=== PATIENT | male | born 1965 | race Two or more races ===

== ENCOUNTER 2024-09-12 16:08 | Emergency (ER) | payer OTHER, SELFPAY ==
[2024-09-12 16:23] VITALS: BP 146/84; PULSE 86; RESP 16; TEMP 36.6; O2SAT 98; BMI 23.2
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
[2024-09-12 17:09] LABS: Basophils Absolute Auto 0.02 K/uL (0.00-0.30); Basophils Percent Auto 0.3 % (0.0-3.0); Eosinophils Absolute Auto 0.05 K/uL (0.00-0.50); Eosinophils Percent Auto 0.8 % (0.0-7.0); Hematocrit 42.9 % (37.0-53.0); Hemoglobin* 14.8 gm/dL (13.5-17.5); Lymphocytes Absolute Auto 1.93 K/uL (0.90-2.90); Lymphocytes Percent Auto 29.2 % (20-44); Mean Corpuscular HGB Conc 35 gm/dL (32-36); Mean Corpuscular Hemoglobin 30 pg (26-34); Mean Corpuscular Volume 87 fL (80-100); Monocytes Percent Auto 6.5 % (0.0-11.0); Neutrophils Absolute Auto 4.19 K/uL (1.7-7.0); Neutrophils Percent Auto 63.2 % (42.0-72.0); Platelet Count* 145 K/uL (140-440); RDW Coefficient of Variation % 12.2 % (11.5-15.5); Red Blood Count 4.93 m/uL (4.30-5.90); White Blood Count* 6.62 K/uL (4.50-11.00)
[2024-09-12 17:23] LABS: Slide Review Reflex No
[2024-09-12 17:25] LABS: Chloride* 99 mmol/L (96-114); Potassium* 3.3 mmol/L (3.6-5.1); Sodium* 136 mmol/L (135-149)
[2024-09-12 17:28] LABS: Creatinine* 0.8 mg/dL (0.5-1.5); Est. Creatinine Clearance* 84.28; Estimated Glomerular Filt Rate 103 ml/min
[2024-09-12 17:29] LABS: Anion Gap 12 mEq/L (7-15); Blood Urea Nitrogen* 18 mg/dL (7-30); Calcium* 9.1 mg/dL (8.4-10.6); Carbon Dioxide* 25 mmol/L (20-32); Glucose* 297 mg/dL (60-115)
--- OUTSIDE RECORDS SUMMARY | 2024-09-12 17:29 | XMS_ITS | Data Portability ---
Author Organization [facility] Address [address] [place] [address] Hiram ELDERGLORIA HENRIQUEZ [id number] Assessment No assessment recorded. Plan of Treatment Reminders Order Date Submit Date Provider Last Modified By Organization Details Last Modified Time Details Appointments None recorded. Lab CBC w/ auto diff 2019 FARIBA Not available 15:15:51 CMP, serum or plasma 2019 FARIBA Not available 18:14:52 lipid panel, serum 2019 FARIBA Not available 1 18:14:52 hemoglobin A1C/hemogl obin total, QN, blood 2019 FARIBA Not available 1 09:15:33 microalbum in/creatin ine, mass ratio, urine 2019 020 FARIBA Not available 1 18:14:52 CBC w/ auto diff 2020 021 [email or web address] Not available 1 11:13:01 CMP, serum or plasma 2020 021 [email or web address] Not available 1 11:13:08 lipid panel, serum 2020 021 Not available 1 11:13:15 hemoglobin A1C/hemogl obin total, QN, blood 2020 021 [email or web address] Not available 1 11:18:33 microalbum in/creatin ine, mass ratio, urine 2020 021 [email or web address] Not available 11:18:39 Referral None recorded. Procedures None recorded. Surgeries None recorded. Imaging None recorded. Medication Orders metformin 500 mg tablet 2020 021 [email or web address] Not available 15:53:04 Patient TargetsNo targets recorded. Patient Instructions Encounter Date Encounter Id Patient Instructions Last Modified By Organization Details Last Modified Time 11/04/2020 [id number] go to [facility] and get vitamins [place] Not available 11/04/2020 14:38:07 Reason for Referral None Reported. Results Created Date Observation Date Name Description Value Unit Range Abnormal Flag Note LastModifiedBy Organization Detail LastModifiedTime 12/30/1912/30/2020 hemog lobin A1C/h emogl obin total , QN, blood HGB A1C 6.4 Not Available [facility] [address], [place], [address], 12/31/2020 09:07:56 12/30/19 21 12/30/2020 micro album in/cr eatin ine, mass ratio , urine creatinine 0.71 Not Available [address], [address], 12/30/2020 18:14:52 12/30/19 21 12/30/2020 micro album in/cr eatin ine, mass ratio , urine ALT 21 Not Available [address], [address], 12/30/2020 18:14:52 12/30/19 21 12/30/2020 micro album in/cr eatin ine, mass ratio , urine HDL 37 Not Available [address], [address], 12/30/2020 18:14:52 12/30/19 21 12/30/2020 micro album in/cr eatin ine, mass ratio , urine LDL 57 Not Available [address], [address], 12/30/2020 18:14:52 12/30/19 21 12/30/2020 micro album in/cr eatin ine, mass ratio , urine total 113 Not Available [address] [place], [address], 12/30/2020 18:14:52 12/30/19 21 12/30/2020 micro album in/cr eatin ine, mass ratio , urine trigliceride s 96 Not Available [address] [place], [address], 12/30/2020 18:14:52 12/30/19 21 12/30/2020 micro album in/cr eatin ine, mass ratio , urine microalbumin 22.3 Not Available [address] [place], [address], 12/30/2020 18:14:52 12/30/19 21 12/30/2020 micro album in/cr eatin ine, mass ratio , urine creatinine 1.21 Not Available [address] [place], [address], 12/30/2020 18:14:52 12/30/19 21 12/30/2020 lipid panel , serum creatinine 0.71 Not Available [address] [place], [address], 12/30/2020 18:14:52 12/30/19 21 12/30/2020 lipid panel , serum ALT 21 Not Available [address] [place], [address], 12/30/2020 18:14:52 12/30/19 21 12/30/2020 lipid panel , serum HDL 37 Not Available [address] [place], [address], 12/30/2020 18:14:52 12/30/19 21 12/30/2020 lipid panel , serum LDL 57 Not Available [address] [place], [address], 12/30/2020 18:14:52 12/30/19 21 12/30/2020 lipid panel , serum total 113 Not Available [address] [place], [address], 12/30/2020 18:14:52 12/30/19 21 12/30/2020 lipid panel , serum trigliceride s 96 Not Available [address] [place], [address], 12/30/2020 18:14:52 12/30/19 21 12/30/2020 lipid panel , serum microalbumin 22.3 Not Available [address] [place], [address], 12/30/2020 18:14:52 12/30/19 21 12/30/2020 lipid panel , serum creatinine 1.21 Not Available [address] [place], [address], 12/30/2020 18:14:52 12/30/19 21 12/30/2020 CMP, serum or plasm a creatinine 0.71 Not Available [address] [place], [address], 12/30/2020 16:12:32 12/30/19 21 12/30/2020 CMP, serum or plasm a ALT 21 Not Available [address] [place], [address], 12/30/2020 16:12:32 12/30/19 21 12/30/2020 CMP, serum or plasm a HDL 37 Not Available [address] [place], [address], 12/30/2020 16:12:32 12/30/19 21 12/30/2020 CMP, serum or plasm a LDL 57 Not Available [address] [place], [address], 12/30/2020 16:12:32 12/30/19 21 12/30/2020 CMP, serum or plasm a total 113 Not Available [address] [place], [address], 12/30/2020 16:12:32 12/30/19 21 12/30/2020 CMP, serum or plasm a trigliceride s 96 Not Available [address] [place], [address], 12/30/2020 16:12:32 12/30/19 21 12/30/2020 CMP, serum or plasm a microalbumin 22.3 Not Available [address] [place], [address], 12/30/2020 16:12:32 12/30/19 21 12/30/2020 CMP, serum or plasm a creatinine 1.21 Not Available [address] [place], [address], 12/30/2020 16:12:32 12/30/19 21 12/30/2020 CBC w/ auto diff HGB 14.8 Not Available [address] [place], [address], 12/30/2020 15:08:17 12/30/19 21 12/30/2020 CBC w/ auto diff platelets 187 Not Available [address] [place], [address], 12/30/2020 15:08:17 12/30/19 21 12/30/2020 CBC w/ auto diff WBC 6.7 Not Available Kimberly Pool [facility] [address], [place], [address], 12/30/2020 15:08:17 Result Notes None recorded. Medical Equipment None Reported. Medications Name Sig Start Date Stop Date Status Note LastModified by Organization Details LastModified Time metformin 500 mg tablet Take 0.5 tablets every day by oral route. active Not Available Not Available No t Available Vitals None Recorded Social History None recorded. Functional Status None recorded. Mental Status None recorded. Family History Nothing Reported. Medical History No medical history recorded. Immunizations Vaccine Type Date Status Provider Name and Address Organization Details Recorded Time COVID-19, mRNA, LNP-S, PF, 30 mcg/0.3 mL dose, marvin-sucrose 12/03/2021 completed DENISE LOUIS [address] [place] [address], [id number], [facility] 12/03/2021 17:31:19 Past Encounters Encounter ID Performer Location Encounter Start Date Encounter Closed Date Diagnosis/Indication Diagnosis SNOMED-CT Code Diagnosis ICD10 Code [id number] Gian Freeman MD [facility] [address] [place] [address] 11/04/2020 14:13:57 11/04/2020 16:08:50 Numbness of foot 172912090 R20.0 [id number] Gian Freeman MD [facility] [address] [place] [id number] 01/06/2021 14:49:38 01/06/2021 15:57:27 Numbness of foot 082373921 R20.0 Type 2 syeda betes mellitus without complication 544054715 E11.9 Type 2 syeda betes mellitus 25359310 E11.9 [id number] DENISE LOUIS [facility] [address] [place] [id number] 12/03/2021 17:20:19 12/03/2021 20:55:45 Administration of SARS-CoV-2 mRNA vaccine [id number] Z23 Health Concerns Section Related Observation LastModified by Organization Detai ls LastModified Time None Recorded Concern Status LastModified by Organization Details LastModified Time None Recorded Advance Directives Directive None Recorded Payers Encounter Date Sequence Insurance Name Policy Number Policy Thakkar Covered Member ID Thakkar Member ID Guarantor Name 11/04/2020 SLIDING FEE SCHEDULE - DISCOUNT Sajan Ramirezo 01/06/2021 SLIDING FEE SCHEDULE - DISCOUNT Sajan Ramirezo 12/03/2021 SLIDING FEE SCHEDULE - DISCOUNT Sajan Ramirezo Notes Date Note Type Note Provider Name and Address Organization Details Recorded Time 11/04/2020 text/html HPI Notes: prediabetes in past, feet numb for two months, no open sores, occ hands, weight stable at 170, unemployed, family hx of diabetes, Gian Freeman MD [address] [facility] [place], [address], [facility] [employer] 11/04/2020 14:39:44 01/06/2021 text/html HPI Notes: feet ar better, remains unemployed, no other sx Gian Freeman MD [address] [facility] [place], [address], [facility] [employer] 01/06/2021 15:52:07 12/03/2021 text/html HPI Notes: Requesting Covid 19 vaccine DENISE LOUIS [address] [place], [address], [facility] [employer] 12/03/2021 17:32:55
[2024-09-12 18:31] LABS: Appearance Urine Cloudy (Clear); Bilirubin Urine Negative (Negative); Blood Urine Trace-intact (Negative); Color Urine Yellow (Yellow); Glucose Urine 2+ (Negative); Ketones Urine 2+ (Negative); Leukocyte Esterase Urine Negative (Negative); Nitrite Urine Negative (Negative); Protein Urine 2+ (Negative); Specific Gravity Urine 1.015 (1.000-1.030)
[2024-09-12 18:37] LABS: Bacteria Urine Few; Fine Granular Casts Urine Few; RBC Urine 0-2 (0-2); Squamous Epithelial Cell Urine Few (None-Few); WBC Urine 25-50 (0-5)
== END 2024-09-12 18:51 | disposition home or self-care (01) ==
PROVIDERS: Emergency Provider Family Medicine; Visit Provider Family Medicine
DX: M54.50 Low back pain, unspecified (principal); V43.52XA Car driver injured in collision with other type car in traffic accident, initial encounter
CPT/HCPCS: 36415; 72131; 74177; 80048; 81001; 85025; 87086; 87186; 99284; Q9967

== ENCOUNTER 2025-03-17 22:38 | Emergency (ER) | payer OTHER, SELFPAY ==
--- OUTSIDE RECORDS SUMMARY | 2025-03-17 22:40 | XMS_ITS | Data Portability ---
Author Organization [facility] Address [address] [place] [address] Hiram [facility] GOFF [id number] Assessment No assessment recorded. Plan of Treatment Reminders Order Date Submit Date Provider Last Modified By Organization Details Last Modified Time Details Appointments None recorded. Lab CBC w/ auto diff 2020 [email or web address] Not available 11:13:01 CMP, serum or plasma 2020 021 [email or web address] Not available 11:13:08 lipid panel, serum 2020 021 [email or web address] Not available 1 11:13:15 hemoglobin A1C/hemogl obin total, QN, blood 2020 021 [email or web address] Not available 11:18:33 microalbum in/creatin ine, mass ratio, urine 2020 021 [email or web address] Not available 11:18:39 CBC w/ auto diff 2019 020 [email or web address] Not available 1 15:15:51 CMP, serum or plasma 2019 020 [email or web address] Not available 1 18:14:52 lipid panel, serum 2019 020 [email or web address] Not available 1 18:14:52 hemoglobin A1C/hemogl obin total, QN, blood 2019 020 FARIBA Not available 1 09:15:33 microalbum in/creatin ine, mass ratio, urine 12/07/ 2020 12/07/2 020 FARIBA Not available 18:14:52 Referral None recorded. Procedures None recorded. Surgeries None recorded. Imaging None recorded. Medication Orders metformin 500 mg tablet 2020 021 [email or web address] Not available 15:53:04 Patient TargetsNo targets recorded. Patient Instructions Encounter Date Encounter Id Patient Instructions Last Modified By Organization Details Last Modified Time 11/04/2020 [id number] go to [facility] and get vitamins [place] Not available 11/04/2020 14:38:07 Reason for Referral None Reported. Results Created Date Observation Date Name Description Value Unit Range Abnormal Flag Note LastModifiedBy Organization Detail LastModifiedTime 12/30/1912/30/2020 hemog lobin A1C/h emogl obin total , QN, blood HGB A1C 6.4 Not Available [facility] [address], [place], [address], 12/31/2020 09:07:56 12/30/19 21 12/30/2020 micro album in/cr eatin ine, mass ratio , urine creatinine 0.71 Not Available [address], [address], 12/30/2020 18:14:52 12/30/19 21 12/30/2020 micro album in/cr eatin ine, mass ratio , urine ALT 21 Not Available [address], [address], 12/30/2020 18:14:52 12/30/19 21 12/30/2020 micro album in/cr eatin ine, mass ratio , urine HDL 37 Not Available [address], [address], 12/30/2020 18:14:52 12/30/19 21 12/30/2020 micro album in/cr eatin ine, mass ratio , urine LDL 57 Not Available [address], [address], 12/30/2020 18:14:52 12/30/19 21 12/30/2020 micro album in/cr eatin ine, mass ratio , urine total 113 Not Available [address] [place], [address], 12/30/2020 18:14:52 12/30/19 21 12/30/2020 micro album in/cr eatin ine, mass ratio , urine trigliceride s 96 Not Available [address] [place], [address], 12/30/2020 18:14:52 12/30/19 21 12/30/2020 micro album in/cr eatin ine, mass ratio , urine microalbumin 22.3 Not Available [address] [place], [address], 12/30/2020 18:14:52 12/30/19 21 12/30/2020 micro album in/cr eatin ine, mass ratio , urine creatinine 1.21 Not Available [address] [place], [address], 12/30/2020 18:14:52 12/30/19 21 12/30/2020 lipid panel , serum creatinine 0.71 Not Available [address] [place], [address], 12/30/2020 18:14:52 12/30/19 21 12/30/2020 lipid panel , serum ALT 21 Not Available [address] [place], [address], 12/30/2020 18:14:52 12/30/19 21 12/30/2020 lipid panel , serum HDL 37 Not Available [address] [place], [address], 12/30/2020 18:14:52 12/30/19 21 12/30/2020 lipid panel , serum LDL 57 Not Available [address] [place], [address], 12/30/2020 18:14:52 12/30/19 21 12/30/2020 lipid panel , serum total 113 Not Available [address] [place], [address], 12/30/2020 18:14:52 12/30/19 21 12/30/2020 lipid panel , serum trigliceride s 96 Not Available [address] [place], [address], 12/30/2020 18:14:52 12/30/19 21 12/30/2020 lipid panel , serum microalbumin 22.3 Not Available [address] [place], [address], 12/30/2020 18:14:52 12/30/19 21 12/30/2020 lipid panel , serum creatinine 1.21 Not Available [address] [place], [address], 12/30/2020 18:14:52 12/30/19 21 12/30/2020 CMP, serum or plasm a creatinine 0.71 Not Available [address] [place], [address], 12/30/2020 16:12:32 12/30/19 21 12/30/2020 CMP, serum or plasm a ALT 21 Not Available [address] [place], [address], 12/30/2020 16:12:32 12/30/19 21 12/30/2020 CMP, serum or plasm a HDL 37 Not Available [address] [place], [address], 12/30/2020 16:12:32 12/30/19 21 12/30/2020 CMP, serum or plasm a LDL 57 Not Available [address] [place], [address], 12/30/2020 16:12:32 12/30/19 21 12/30/2020 CMP, serum or plasm a total 113 Not Available [address] [place], [address], 12/30/2020 16:12:32 12/30/19 21 12/30/2020 CMP, serum or plasm a trigliceride s 96 Not Available [address] [place], [address], 12/30/2020 16:12:32 12/30/19 21 12/30/2020 CMP, serum or plasm a microalbumin 22.3 Not Available [address] [place], [address], 12/30/2020 16:12:32 12/30/19 21 12/30/2020 CMP, serum or plasm a creatinine 1.21 Not Available [address] [place], [address], 12/30/2020 16:12:32 12/30/19 21 12/30/2020 CBC w/ auto diff HGB 14.8 Not Available [address] [place], [address], 12/30/2020 15:08:17 12/30/19 21 12/30/2020 CBC w/ auto diff platelets 187 Not Available [address] [place], [address], 12/30/2020 15:08:17 12/30/19 21 12/30/2020 CBC w/ auto diff WBC 6.7 Not Available [facility] [address], [place], [address], 12/30/2020 15:08:17 Result Notes None recorded. Medical [...] history recorded. Immunizations Vaccine Type Date Status Note Provider Nam e and Address Organization Details Recorded Time COVID-19, mRNA, LNP-S, PF, 30 mcg/0.3 mL dose, marvin-sucrose 12/03/2021 completed DENISE LOUIS [address] [place] [address], [id number], [facility] 12/03/2021 17:31:19 Past Encounters Encounter ID Performer Location Encounter Start Date Encounter Closed Date Diagnosis/Indication Diagnosis SNOMED-CT Code Diagnosis ICD10 Code Diagnosis Note [id number] Gian Freeman MD [facility] [address] [place] [phone] 11/04/2020 14:13:57 11/04/2020 16:08:50 Numbness of foot 066480220 R20.0 [id number] [facility] [address] [place] [id number] 01/06/2021 14:49:38 01/06/2021 15:57:27 Numbness of foot 308254014 R20.0 Type 2 syeda betes mellitus without complication 240984601 E11.9 needs rx Type 2 syeda betes mellitus 69219212 E11.9 [id number] DEINSE LOUIS [facility] [address] [place] [phone] 12/03/2021 17:20:19 12/03/2021 20:55:45 Administration of SARS-CoV-2 mRNA vaccine 4355538491 Z23 Health Concerns Section Related Observation LastModified by Organization Detai ls LastModified Time None Recorded Concern Status LastModified by Organization Details LastModified Time None Recorded Advance Directives Directive None Recorded Payers Encounter Date Sequence Insurance Name Policy Number Policy Thakkar Covered Member ID Thakkar Member ID Guarantor Name 11/04/2020 SLIDING FEE SCHEDULE - DISCOUNT Sajan Zaragozaucedo 01/06/2021 SLIDING FEE SCHEDULE - DISCOUNT Sajan Mclean 12/03/2021 SLIDING FEE SCHEDULE - DISCOUNT Sajan Mclean Notes Date Note Type Note Provider Name and Address Organization Details Recorded Time 11/04/2020 text/html prediabetes in past, feet numb for two months, no open sores, occ hands, weight stable at 170, unemployed, family hx of diabetes, Gian Freeman MD [address] [facility] [place], [address], [facility] [employer] 11/04/2020 14:39:44 01/06/2021 text/html feet ar better, remains unemployed, no other sx Gian rFeeman MD [address] [facility], [address], [facility] [employer] 01/06/2021 15:52:07 12/03/2021 text/html Requesting Covid 19 vaccine DENISE LOUIS [address] [facility] [place], [address], [facility] [employer] 12/03/2021 17:32:55
[2025-03-17 22:54] VITALS: BP 153/92; PULSE 70; RESP 18; TEMP 36.3; O2SAT 97
--- NOTE | 2025-03-17 23:16 | CRLHL7_ITS ---
For Patients: As a result of the Cures Act, medical imaging exams and procedure reports are released immediately into your electronic medical record. You may view this report before your referring provider. If you have questions, please contact your health care provider. INDICATION: Fall, knee pain TECHNIQUE: Knee radiograph 2 views right COMPARISON: None FINDINGS: Bone: There is a comminuted intra-articular fracture of the distal femur present and extending into the intercondylar notch. Corticated lucency seen along the base of the tibial spines which may be due to remote injury. Joint: Mild osteoarthritis is noted in the medial and patellofemoral compartments. No significant knee effusion is seen. Soft tissue: Unremarkable. No radiopaque foreign bodies are seen. IMPRESSION: 1. There is a comminuted intra-articular fracture of the distal femur present and extending into the intercondylar notch. Dictated by Wei Patino MD @ 03/17/2025 11:32:22 PM Dictated by: Wei Patino MD @ 03/17/2025 23:32:27 (Electronically Signed)
--- NOTE | 2025-03-17 23:46 | ED.GENADULT ---
HPI - General Adult General Chief complaint: Extremity Pain/Injury, Lower <Marilia Bowen MD - Last Filed: 03/25/25 08:03> Stated complaint: Fall, R leg injury <Marilia Bowen MD - Last Filed: 03/25/25 08:03> Time Seen by Provider: 03/17/25 23:46 <Marilia Bowen MD - Last Filed: 03/25/25 08:03> Source: patient <Marilia Bowen MD - Last Filed: 03/25/25 08:03> Mode of arrival: ambulatory <Marilia Bowen MD - Last Filed: 03/25/25 08:03> Limitations: no limitations <Marilia Bowen MD - Last Filed: 03/25/25 08:03> History of Present Illness HPI narrative: 59-year-old male coming in today complaining of right-sided knee pain. Patient states that he missed the last step going down the stairs and fell forward right onto his knee. [place] that his leg twisted behind him and he felt immediate pain. Has not been able to walk since. This occurred approximately 2 hours ago. He last ate 6-1/2 hours ago. Denies any other injury. Denies pain in his upper extremities, abdomen or chest. Did not hit his head or lose consciousness. <Marilia Bowen MD - Last Filed: 03/25/25 08:03> Related Data Home medications: Home Medications ?Medication ?Instructions ?Recorded ?Confirmed No Known Home Medications 09/12/24 09/12/24 <Marilia Bowen MD - Last Filed: 03/25/25 08:03> Allergies/adverse reactions: Allergies Allergy/AdvReac Type Severity Reaction Status Date / Time No Known Drug Allergies Allergy Verified 09/12/24 17:35 <Marilia Bowen MD - Last Filed: 03/25/25 08:03> Review of Systems Status of ROS: Reports: 6 or more systems reviewed and unremarkable except as noted in History and below <Marilia Bowen MD - Last Filed: 03/25/25 08:03> [facility] Social History: Social History Smoking Status: Never smoker Do you use any of these nicotine containing products: None How often do you have a drink containing alcohol: 2-4 times a month AUDIT-C Alcohol total score: 2 Non-prescribed substance use: denies use <Marilia Bowen MD - Last Filed: 03/25/25 08:03> Exam Narrative: Exam Narrative: Well-nourished well-developed patient in no acute distress. Alert and oriented. Answers questions appropriately. Mood and affect are appropriate. Thoughts are goal oriented and rational. No tangential or magical thinking noted. Patient speaks in full sentences without needing to catch his breath. HEENT: Normocephalic atraumatic. Pupils are equally round reactive to light. Extraocular muscles are intact. Conjunctivae are moist without any icterus noted. Moist mucous membranes. No pain to palpation of the chest wall. No abdominal discomfort with palpation. Extremities: Patient has significant swelling over the right knee with tenderness. Significant pain with active and passive range of motion. <Marilia Bowen MD - Last Filed: 03/25/25 08:03> Const: Vital Signs, click to edit/add: Vital Signs - 24 hr 03/17/25 22:54 03/18/25 00:32 Temperature 97.3 F L Pulse Rate [Pulse Oximeter] 70 72 Respiratory Rate 18 16 Blood Pressure [Ri ght Upper Arm] 153/92 H 136/81 Pulse Oximetry 97 94 Oxygen Delivery Me thod Room Air Room Air <Marilia Bowen MD - Last Filed: 03/25/25 08:03> Vital Signs, click to edit/add: Vital Signs - 24 hr 03/17/25 22:54 03/18/25 00:32 Temperature 97.3 F L Pulse Rate [Pulse Oximeter] 70 72 Respiratory Rate 18 16 Blood Pressure [Ri ght Upper Arm] 153/92 H 136/81 Pulse Oximetry 97 94 Oxygen Delivery Me thod Room Air Room Air <Feng Torres MD - Last Filed: 03/18/25 00:46> Documenting provider has reviewed patient's vital signs: yes <Feng Torres MD - Last Filed: 03/18/25 00:46> Course Course ED Course: X-ray of the knee shows an intra-articular fracture of the distal femur extending into the intracondylar notch. <Marilia Bowen MD - Last Filed: 03/25/25 08:03> Vital Signs Vital signs: Initial Vital Signs Temperature 97.3 F L 03/17/25 22:54 Temperature Source Temporal Artery Scan 03/17/25 22:54 Pulse Rate 70 03/17/25 22:54 Respiratory Rate 18 03/17/25 22:54 Blood Pressure 153/92 H 03/17/25 22:54 Blood Pressure Mean 112 H 03/17/25 22:54 Blood Pressure Position Supine 03/17/25 22:54 Pulse Oximetry 97 03/17/25 22:54 Oxygen Delivery Method Room Air 03/17/25 22:54 Vital Signs Temperature 97.3 F L 03/17/25 22:54 Pulse Rate 70 03/17/25 22:54 Respiratory Rate 18 03/17/25 22:54 Blood Pressure 153/92 H 03/17/25 22:54 Pulse Oximetry 97 03/17/25 22:54 Oxygen Delivery Method Room Air 03/17/25 22:54 Temperature 97.3 F L 03/17/25 22:54 Pulse Rate 74 03/18/25 00:49 Respiratory Rate 16 03/18/25 00:32 Blood Pressure 136/81 03/18/25 00:32 Pulse Oximetry 94 03/18/25 00:32 Oxygen Delivery Method Room Air 03/18/25 00:32 <Marilia Bowen MD - Last Filed: 03/25/25 08:03> Initial Vital Signs Temperature 97.3 F L 03/17/25 22:54 Temperature Source Temporal Artery Scan 03/17/25 22:54 Pulse Rate 70 03/17/25 22:54 Respiratory Rate 18 03/17/25 22:54 Blood Pressure 153/92 H 03/17/25 22:54 Blood Pressure Mean 112 H 03/17/25 22:54 Blood Pressure Position Supine 03/17/25 22:54 Pulse Oximetry 97 03/17/25 22:54 Oxygen Delivery Method Room Air 03/17/25 22:54 Vital Signs Temperature 97.3 F L 03/17/25 22:54 Pulse Rate 70 03/17/25 22:54 Respiratory Rate 18 03/17/25 22:54 Blood Pressure 153/92 H 03/17/25 22:54 Pulse Oximetry 97 03/17/25 22:54 Oxygen Delivery Method Room Air 03/17/25 22:54 Temperature 97.3 F L 03/17/25 22:54 Pulse Rate 74 03/18/25 00:49 Respiratory Rate 16 03/18/25 00:32 Blood Pressure 136/81 03/18/25 00:32 Pulse Oximetry 94 03/18/25 00:32 Oxygen Delivery Method Room Air 03/18/25 00:32 <Feng Torres MD - Last Filed: 03/18/25 00:46> Medications Administered Medications: Discontinued Medications Generic Name Dose Route Start Last Admin Trade Name Freq PRN Reason Stop Dose Admin Morphine Sulfate 4 mg 03/18/25 00:39 03/18/25 00:41 Morphine 4 Mg/Ml Inj IVP 03/18/25 00:40 4 mg ONCE ONE Administration <Marilia Bowen MD - Last Filed: 03/25/25 08:03> Discontinued Medications Generic Name Dose Route Start Last Admin Trade Name Freq PRN Reason Stop Dose Admin Morphine Sulfate 4 mg 03/18/25 00:39 03/18/25 00:41 Morphine 4 Mg/Ml Inj IVP 03/18/25 00:40 4 mg ONCE ONE Administration <Feng Torres MD - Last Filed: 03/18/25 00:46> Medical Decision Making MDM Narrative Medical decision making narrative: Brian -- in here to this patient at change of shift with known distal femur fracture with intra-articular involvement of the right knee. Ortho was contacted during handoff recommending transfer to tertiary facility/trauma center. I did independently review x-ray images of the knee two-view. Shows a comminuted intra-articular fracture at the distal femur. Appears to extend to the intercondylar area. Did contact [facility] and Dr. Watson thankfully accepting in transport. Patient and son prefer to drive by private car. I have offered pain medication. Given 4 mg morphine IM. Placed posterior knee ortho glass splint and wrapped with knee immobilizer. This appears to provide good stability to his knee. Appears comfortable. INDICATION: Fall, knee pain TECHNIQUE: Knee radiograph 2 views right COMPARISON: None FINDINGS: Bone: There is a comminuted intra-articular fracture of the distal femur present and extending into the intercondylar notch. Corticated lucency seen along the base of the tibial spines which may be due to remote injury. Joint: Mild osteoarthritis is noted in the medial and patellofemoral compartments. No significant knee effusion is seen. Soft tissue: Unremarkable. No radiopaque foreign bodies are seen. IMPRESSION: 1. There is a comminuted intra-articular fracture of the distal femur present and extending into the intercondylar notch. Dictated by Wei Patino MD @ 03/17/2025 11:32:22 PM <Feng Torres MD - Last Filed: 03/18/25 00:46> Medical Records Medical records reviewed: Yes I reviewed the patient's medical records <Feng Torres MD - Last Filed: 03/18/25 00:46> Imaging Data Knee x-ray: Attestation: I have reviewed the pertinent imaging results. <Marilia Bowen MD - Last Filed: 03/25/25 08:03> Radiologist's impression: TECHNIQUE: Knee radiograph 2 views right COMPARISON: None FINDINGS: Bone: There is a comminuted intra-articular fracture of the distal femur present and extending into the intercondylar notch. Corticated lucency seen along the base of the tibial spines which may be due to remote injury. Joint: Mild osteoarthritis is noted in the medial and patellofemoral compartments. No significant knee effusion is seen. Soft tissue: Unremarkable. No radiopaque foreign bodies are seen. IMPRESSION: 1. There is a comminuted intra-articular fracture of the distal femur present and extending into the intercondylar notch. <Marilia Bowen MD - Last Filed: 03/25/25 08:03> Discharge Plan Discharge Clinical Impression: Femur fracture <Marilia Bowen MD - Last Filed: 03/25/25 08:03> Patient Disposition: Home w/ Parent or Adult <Marilia Bowen MD - Last Filed: 03/25/25 08:03> Additional Instructions: Please go directly to the emergency department at [facility]. Dr. Watson is accepting. <Marilia Bowen MD - Last Filed: 03/25/25 08:03> Prescriptions: No Action No Known Home Medications <Marilia Bowen MD - Last Filed: 03/25/25 08:03> Follow Up/Referrals: Provider,Not a Local [Primary Care Provider] - <Marilia Bowen MD - Last Filed: 03/25/25 08:03> Stand Alone Forms: [facility] Info Instructions <Marilia Bowen MD - Last Filed: 03/25/25 08:03>
[2025-03-18 00:32] VITALS: BP 136/81; PULSE 72; RESP 16; O2SAT 94
[2025-03-18] MEDS: MORPHINE 4 MG/ML INJ IVP (00:41)
[2025-03-18 00:49] VITALS: PULSE 74
== END 2025-03-18 01:10 | disposition home or self-care (01) ==
PROVIDERS: Emergency Provider Family Medicine
DX: S72.491A Other fracture of lower end of right femur, initial encounter for closed fracture (principal); W10.8XXA Fall (on) (from) other stairs and steps, initial encounter
CPT/HCPCS: 73560; 96374; 99284; J2270

== ENCOUNTER 2025-08-17 11:15 | Outpatient (RCR) | payer OTHER, SELFPAY | END 2025-09-05 15:18 | disposition home or self-care (01) | PROVIDERS: PCP Physician Assistant; Visit Provider Physician Assistant | DX: S72.401D Unspecified fracture of lower end of right femur, subsequent encounter for closed fracture with routine healing (principal); M25.561 Pain in right knee; Z51.89 Encounter for other specified aftercare | CPT/HCPCS: 97110; 97140; 97161; 97530 ==